=== PATIENT | male | born 1960 | race Two or more races ===

== ENCOUNTER 2020-11-22 11:31 | Inpatient (IN) | payer OTHER ==
[~2020-11-22] VITALS: Ht 165.1 cm; Wt 88.9 kg
[2020-11-22] MEDS ORDERED: PIPERACILLIN /TAZOBACTAM 3.375 G in IV D5W 50 ML IV ONE (12:00)
--- NOTE | 2020-11-22 12:08 | NUR ---
[id number], from [facility], 02 desaturation 80%, on vent and trach, last covid negative 11/17/20, On vent and trach, connected to the monitor and pulse ox. Will continue to monitor accordingly.
--- NOTE | 2020-11-22 12:09 | NUR ---
Covid swab collected and sent to lab
--- NOTE | 2020-11-22 12:09 | NUR ---
IV access initiated and blood drawned and sent to lab.
[2020-11-22 12:12] LABS: BASOPHILS # (AUTO) 0.1 /CMM (0.0-0.2); BASOPHILS % (AUTO) 0.6 % (0.0-2.0); EOSINOPHILS % (AUTO) 2.9 % (0.0-6.0); HEMATOCRIT 23 % (39-51); HEMOGLOBIN 7.2 g/dL (13.5-17.5); LYMPHOCYTES # (AUTO) 0.6 /CMM (0.8-4.8); MEAN CORPUSCULAR HGB CONC 32 g/dl (31.0-36.0); MEAN CORPUSCULAR VOLUME 105 fL (80-96); MONOCYTES # (AUTO) 1.2 /CMM (0.1-1.30); MONOCYTES % (AUTO) 7.6 % (2.0-12.0); NEUTROPHILS # (AUTO) 13.6 /CMM (1.8-8.9); NEUTROPHILS % (AUTO) 84.9 % (43.0-81.0); PLATELET COUNT (AUTO) 337 /CMM (150-450); RED BLOOD CELL COUNT(AUTO) 2.16 MIL/uL (4.5-6.0)
[2020-11-22 12:13] LABS: ABG BASE EXCESS 1.6 mmol/L; ABG OXYGEN SATURATION 94.9 % (92.0-98.5); ABG PCO2 69.1 mmHg (35.0-45.0); ABG PH 7.249 (7.350-7.450); ABG PO2 84.2 mmHg (75.0-100.0); AaDO2 377.1 mmHg; MetHb 0.1 % (0.0-1.5); O2Hb 93.9 % (94.0-97.0); SITE, ABG Right Radial; VENT MODE, BG ac15 500 +5 75%
[2020-11-22 12:14] LABS: CALCIUM, SERUM 8.5 mg/dL (8.5-10.1); CREATININE 3.7 mg/dL (0.6-1.3); POTASSIUM 4.2 mmol/L (3.5-5.1)
[2020-11-22 12:26] LABS: ALBUMIN 1.9 g/dL (3.4-5.0); BILIRUBIN,DIRECT 1.5 mg/dL (0.0-0.2); BILIRUBIN,TOTAL 1.9 mg/dL (0.2-1.0); TOTAL PROTEIN, SERUM 6.9 g/dL (6.4-8.2)
--- NOTE | 2020-11-22 12:33 | NUR ---
DR SALGADO AT BEDSIDE
[2020-11-22] MEDS ORDERED: MEROPENEM 1 G in IV NS 0.9% 100 ML IV ONE (13:00)
[2020-11-22] MEDS ORDERED: methylPREDNISolone SOD SUCC 125 MG/2ML VIAL IV SCH (13:00)
[2020-11-22] MEDS ORDERED: HEPARIN SODIUM, PORCINE 5000 UNITS/1 ML VIAL SQ SCH (13:00)
--- NOTE | 2020-11-22 13:12 | NUR ---
[facility] CALLED SAFETY PERSON PAGED CINDY ANDREWS.
[2020-11-22] MEDS ORDERED: LORA-259 GT (13:23)
[2020-11-22] MEDS ORDERED: SIME80TA15 GT (13:23)
[2020-11-22] MEDS ORDERED: NUTR100037 GT (13:23)
[2020-11-22] MEDS ORDERED: CALC500T13 GT (13:23)
[2020-11-22] MEDS ORDERED: DILT30TA14 GT (13:23)
[2020-11-22] MEDS ORDERED: LANS30CA56 GT (13:23)
[2020-11-22] MEDS ORDERED: ONDA4TAB5 GT (13:23)
[2020-11-22] MEDS ORDERED: HYDR-4384 GT (13:23)
[2020-11-22] MEDS ORDERED: ACET650S26 GT (13:23)
[2020-11-22] MEDS ORDERED: MIDO10TA GT (13:23)
[2020-11-22] MEDS ORDERED: IPRA12.9 IH (13:23)
[2020-11-22] MEDS ORDERED: ASPI-1169 GT (13:23)
[2020-11-22] MEDS ORDERED: BISA10SU11 RC (13:23)
[2020-11-22] MEDS ORDERED: FOLI0.8T2 GT (13:23)
[2020-11-22] MEDS ORDERED: CHOL100040 GT (13:23)
[2020-11-22] MEDS ORDERED: TAMS-12 GT (13:23)
[2020-11-22] MEDS ORDERED: SENN-261 GT (13:23)
[2020-11-22] MEDS ORDERED: ATOR10TA GT (13:23)
[2020-11-22] MEDS ORDERED: METO25TA20 GT (13:23)
[2020-11-22] MEDS ORDERED: EPOE4000 SQ (13:23)
[2020-11-22] MEDS ORDERED: SENNOSIDES 8.6 MG TABLET GT PRN (14:30)
[2020-11-22] MEDS ORDERED: MAGNESIUM HYDROXIDE 30 ML UDC PO PRN (14:30)
[2020-11-22] MEDS ORDERED: TEMAZEPAM 15 MG CAPSULE GT PRN (14:30)
[2020-11-22] MEDS ORDERED: MAG HYDROX/AL HYDROX/SIMETH 30 ML UDC PO PRN (14:30)
[2020-11-22] MEDS ORDERED: ACETAMINOPHEN 650 MG/20.3 ML UDC GT PRN (14:30)
[2020-11-22] MEDS ORDERED: SIMETHICONE 80 MG TAB.CHEW GT PRN (14:30)
[2020-11-22] MEDS ORDERED: HYDROCODONE/APAP 5/325MG TABLET GT PRN (14:30)
[2020-11-22] MEDS ORDERED: HOME MED MISCELLANEOUS XX SCH (14:30)
[2020-11-22] MEDS ORDERED: ACETAMINOPHEN 325 MG TABLET PO PRN (14:30)
[2020-11-22] MEDS ORDERED: Z GUARD REMEDY 2 OZ OINT TP PRN (14:30)
[2020-11-22] MEDS ORDERED: BISACODYL SUPP (10 MG) 10 MG/SUPP.RECT SUPP.RECT RC PRN (14:30)
[2020-11-22] MEDS ORDERED: EPOETIN ALFA (4000 UNIT) 4,000 UNIT/ML VIAL SQ PRN (14:30)
[2020-11-22] MEDS ORDERED: ONDANSETRON HCL/PF 4 MG/2 ML VIAL IVP PRN (14:30)
[2020-11-22] MEDS ORDERED: RENAL NOVASOURCE 1,000 ML BOTTLE GT SCH (14:30)
[2020-11-22] MEDS ORDERED: MIDODRINE HCL (5MG) 5 MG TABLET GT PRN (14:30)
[2020-11-22] MEDS: IPRATROPIUM BROMIDE 14 GM INHALER (or 12.9 GM) IH SCH ×2 (15:49→21:30)
[2020-11-22] MEDS ORDERED: VANCOMYCIN 500 MG in IV D5W 100 ML IV PRN (19:00)
[2020-11-22] MEDS ORDERED: VANCOMYCIN 1 GM in IV D5W 250 ML IV ONE (20:00)
[2020-11-22] MEDS ORDERED: CALCIUM CARBONATE 500 MG TAB.CHEW GT PRN (21:00)
[2020-11-22 21:37] LABS: IRON, SERUM 33 ug/dl (50-175); TOTAL IRON BINDING CAPACITY 130 ug/dl (250-450)
[2020-11-22] MEDS ORDERED: ATORVASTATIN 40 MG TABLET ONE ×2 (21:41→22:42)
[2020-11-22] MEDS ORDERED: HEPARIN SODIUM, PORCINE 5000 UNITS/1 ML VIAL ONE (21:41)
[2020-11-22] MEDS ORDERED: TAMSULOSIN 0.4 MG CAP.SR.24H ONE ×2 (21:42→22:39)
[2020-11-22] MEDS ORDERED: methylPREDNISolone SOD SUCC 125 MG/2ML VIAL ONE (21:42)
[2020-11-22] MEDS ORDERED: METOPROLOL TARTRATE 50 MG TABLET ONE (21:42)
[2020-11-22] MEDS ORDERED: DILTIAZEM HCL 30 MG TABLET ONE ×2 (21:42→22:39)
[2020-11-22] MEDS: HEPARIN SODIUM, PORCINE 5000 UNITS/1 ML VIAL SQ SCH (21:50)
[2020-11-22] MEDS: methylPREDNISolone SOD SUCC 40 MG/ML VIAL IV SCH (21:55)
[2020-11-22] MEDS: PIPERACILLIN /TAZOBACTAM 2.25 G in IV D5W 50 ML IV SCH (22:00)
--- NOTE | 2020-11-22 22:00 | NUR ---
ALL MEDS CRUSHED TOGETHER TO ADMIN VIA [employer]ANdisco. NOTED BP 106/61, WILL HOLD LOPRESSOR AND CARDIZEM AT THIS TIME. EMA MORA NP MADE AWARE
--- NOTE | 2020-11-22 22:27 | NUR ---
PER RT, UNABLE TO ADMINISTER ATROVENT VIA TRACH MDI
--- NOTE | 2020-11-22 22:41 | NUR ---
PER EMA MORA NP ADMIN CARDIZEM AND HOLD LOPRESSOR
[2020-11-22] MEDS: ATORVASTATIN 10 MG TABLET GT SCH (23:00)
[2020-11-22] MEDS: DILTIAZEM HCL 30 MG TABLET GT SCH (23:00)
[2020-11-22] MEDS: TAMSULOSIN 0.4 MG CAP.SR.24H GT SCH (23:00)
[2020-11-22] MEDS: METOPROLOL TARTRATE 25 MG TABLET GT SCH (23:07)
--- NOTE | 2020-11-22 23:38 | NUR ---
RT pt received on mechanical vent with current settings. lia castillo 8. vent plugged in to red outlet. trach secure. alarms on and audible. ambu bag at hob. spare trach at bed side. minimal thick secretions suctioned via trach. no sob, no resp distress. will continue to monitor.
--- NOTE | 2020-11-22 23:50 | NUR ---
CALL FROM LAB. RAPID COVID NEGATIVE.
--- NOTE | 2020-11-23 02:48 | NUR ---
PT REMAINS TACHYCARDIC. NO ACUTE DISTRESS NOTED AT THIS TIME, PT SLEEPING COMFORTABLY IN BED. STILL ON CONTINUOUS CHUTE GREASER AND PULSE OX. EMA MORA NP MADE AWARE. WILL CONTINUE TO MONITOR
--- NOTE | 2020-11-23 02:48 | NUR ---
Richard de los santos in ED - 11/23/20 at 0248 by RAJANI PT REMAINS TACHYCARDIC. EMA MORA NP MADE AWARE
[2020-11-23] MEDS: IPRATROPIUM BROMIDE 14 GM INHALER (or 12.9 GM) IH SCH ×3 (03:00→20:08)
[2020-11-23] MEDS: DILTIAZEM HCL 30 MG TABLET GT SCH (05:00)
--- NOTE | 2020-11-23 05:07 | NUR ---
PER RT, UNABLE TO ADMINISTER ATROVENT VIA TRACH MDI
[2020-11-23] MEDS: methylPREDNISolone SOD SUCC 40 MG/ML VIAL IV SCH ×3 (05:10→22:34)
[2020-11-23] MEDS: METOPROLOL TARTRATE 25 MG TABLET GT SCH ×3 (05:10→23:57)
--- NOTE | 2020-11-23 05:10 | NUR ---
BP: 107/65, HR: 130. PER EMA MORA, NURSING OFFICER WILL HOLD CARDIZEM AND ADMINISTER LOPRESSER VIA GTUBE
[2020-11-23] MEDS: PIPERACILLIN /TAZOBACTAM 2.25 G in IV D5W 50 ML IV SCH ×3 (05:12→23:43)
[2020-11-23] MEDS ORDERED: methylPREDNISolone SOD SUCC 125 MG/2ML VIAL ONE (05:13)
[2020-11-23] MEDS ORDERED: METOPROLOL TARTRATE 50 MG TABLET ONE ×2 (05:13→09:30)
[2020-11-23 05:58] LABS: ABG BASE EXCESS 0.9 mmol/L; ABG OXYGEN SATURATION 97.5 % (92.0-98.5); ABG PH 7.301 (7.350-7.450); ABG PO2 101.9 mmHg (75.0-100.0); AaDO2 371.2 mmHg; COHb 0.5 % (0.5-1.5); SITE, ABG Right Radial; VENT MODE, BG AC 15 550 75% +5
[2020-11-23 06:05] LABS: CHOLESTEROL 53 mg/dL (<200); LDL 29 mg/dL (0-99); TRIGLYCERIDES 86 mg/dL (30-150)
[2020-11-23 06:06] LABS: BASOPHILS % (AUTO) 0.1 % (0.0-2.0); CALCIUM, SERUM 8.3 mg/dL (8.5-10.1); CARBON DIOXIDE 30 mmol/L (21-32); CHLORIDE 96 mmol/L (98-107); GLUCOSE 223 mg/dL (74-106); HEMATOCRIT 22 % (39-51); LYMPHOCYTES # (AUTO) 0.9 /CMM (0.8-4.8); MAGNESIUM 2.4 mg/dL (1.8-2.4); MEAN CORPUSCULAR HGB CONC 31 g/dl (31.0-36.0); MEAN CORPUSCULAR VOLUME 104 fL (80-96); MONOCYTES # (AUTO) 0.8 /CMM (0.1-1.30); MONOCYTES % (AUTO) 4.3 % (2.0-12.0); NEUTROPHILS # (AUTO) 16.8 /CMM (1.8-8.9); NEUTROPHILS % (AUTO) 90.6 % (43.0-81.0); PHOSPHORUS 4.6 mg/dL (2.5-4.9); PLATELET COUNT (AUTO) 309 /CMM (150-450); POTASSIUM 4.4 mmol/L (3.5-5.1); RED BLOOD CELL COUNT(AUTO) 2.14 MIL/uL (4.5-6.0); SODIUM SERUM 133 mmol/L (136-145); UREA NITROGEN, BLOOD 69 mg/dL (7-18); WHITE BLOOD COUNT (AUTO) 18.6 K/uL (4.3-11.0)
[2020-11-23 06:07] LABS: HDL CHOLESTEROL < 10 mg/dL (40-60)
--- NOTE | 2020-11-23 06:42 | NUR ---
PT CLEANED, CHANGED, AND REPOSITIONED. STILL ON CONTINUOUS UNIVERSITY [employer]NS[employer]IP AND PULSE OX, WILL CONTINUE TO MONITOR
--- NOTE | 2020-11-23 07:29 | NUR ---
REPORT GIVEN TO DARRYN GONZALES FOR [facility]
[2020-11-23] MEDS ORDERED: HYDROCODONE/APAP 5/325MG TABLET ONE (08:07)
[2020-11-23] MEDS: PANTOPRAZOLE 40 MG/PACK PACK GT SCH (08:30)
[2020-11-23] MEDS ORDERED: HEPARIN SODIUM, PORCINE 5000 UNITS/1 ML VIAL ONE (09:30)
[2020-11-23] MEDS ORDERED: ASPIRIN 81 MG TAB.CHEW ONE (09:30)
[2020-11-23] MEDS ORDERED: DILTIAZEM HCL 30 MG TABLET ONE (09:30)
[2020-11-23] MEDS ORDERED: PANTOPRAZOLE 40 MG/PACK PACK ONE (09:30)
[2020-11-23 09:37] LABS: BAND % (MANUAL) 22 % (0.0-5.0); LYMPHOCYTES % (MANUAL) 6 % (16-48); MONOCYTES % (MANUAL) 8 % (0-11.0); NEUTROPHILS % (MANUAL) 64 (42-76)
[2020-11-23] MEDS: VIT B CMPLX 3/FA/VIT C/BIOTIN 1 TAB TABLET GT SCH (09:53)
[2020-11-23] MEDS: CHOLECALCIFEROL 1,000 UNIT TABLET (VIT D3) GT SCH (09:53)
[2020-11-23] MEDS: ASPIRIN 81 MG TAB.CHEW GT SCH (09:53)
[2020-11-23] MEDS: HEPARIN SODIUM, PORCINE 5000 UNITS/1 ML VIAL SQ SCH ×2 (09:54→21:00)
--- NOTE | 2020-11-23 10:12 | NUR ---
called dietitician for consult for feeding
--- NOTE | 2020-11-23 10:31 | NUR ---
WOUND CARE CONSULT: PT PRESENTS WITH GENERALIZED EDEMA, SACRAL INTACT DEEP TISSUE INJURY WITH SCARRING, LEFT FOOT WOUND AND RT HEEL WOUND, ALL PRESENT ON ADMISSION. RECOMMEND DPM CONSULT. DR RHODES NOTIFIED OF CONSULT REQUEST. RECOMMENDATIONS MADE FOR SKIN PROTECTION. DISCUSSED WITH NURSING STAFF. FOAM DRESSINGS ARE IN PLACE TO LEFT FOOT AND RT HEEL. HEELS FLOATED. MD IN AGREEMENT WITH PLAN OF CARE. Addendum: 11/23/20 at 1032 by ALISHA CARTER WNDNU Amended: Links added.
[2020-11-23] MEDS ORDERED: methylPREDNISolone SOD SUCC 40 MG/ML VIAL ONE (12:55)
[2020-11-23] MEDS ORDERED: NEPRO 1,000 ML BOTTLE GT SCH (13:00)
--- NOTE | 2020-11-23 15:19 | NUR ---
received bed assignment 319
[2020-11-23 15:40] VITALS: BP 106/77
--- NOTE | 2020-11-23 15:40 | NUR ---
tele civil designer: notes received pt from e[facility] via [facility] accompanied by 1 rn, 1 tech, and 1 resp. therapist. pt currently on fio2 at 55% and titrated down to 50% prior to transferring pt from [facility] to bed at this time. kept comfortable. vent settings: ac 24, tv 550, peep 5 and fio2 50%, satting at 97%. hob elevated. ordered g-tube pump to central, spoke to viraj. place pt on tele junctional tachycardia 130. for dpm consult with dr. tse due to left foot wound and right heel wound. keith boots on at this time. oriented to room and surroundings. pt for hd tx today, awaiting for hd nurse, pt aware. will continue to monitor.
--- NOTE | 2020-11-23 15:56 | NUR ---
bedside report given to alfred at [facility].
--- NOTE | 2020-11-23 17:30 | NUR ---
tele rn field: nephro consult seen by dr. baez and pt for hd tonight. sveta (hd nurse) aware.
--- NOTE | 2020-11-23 18:20 | NUR ---
tele credit report checker: dpm consult seen by dr. villar with treatment orders. orders acknowledged.
[2020-11-23] MEDS: NEPRO 1,000 ML BOTTLE GT PRN (18:53)
--- NOTE | 2020-11-23 19:05 | NUR ---
tele nuclear plant construction worker: notes report given to hari (maverick) for continuity of care.
--- NOTE | 2020-11-23 19:45 | NUR ---
EXPLORATION DRILLER OPENING NOTES RECEIVED PATIENT IN BED ALERT AND ORIENTED X 3. CAN MOUTH WORDS AND ABLE TO FOLLOW DIRECTIONS. BREATHING REGULAR AND UNLABORED ON OXYGEN AT 55% VIA MECHANICAL VENT, LATEST SPO2 99%. LEFT HAND G20 IV LINE INTACT AND PATENT, FLUSHING WELL WITH NO S/S OF INFILTRATION NOTED. RIGHT CHEST WALL PERMACATH INTACT WITH NO ACTIVE BLEEDING SEEN, DRESSING CLEAN AND DRY. GTUBE PATENT WITH NO RESIDUAL ASPIRATED. ON CARDIAC MONITORING WITH SINUS TACHYCARDIA AT 130bpm. DENIES PAIN/DISCOMFORT AT THIS TIME. BED LOW AND LOCKED ON SEMI FOWLERS POSITION. CALL LIGHT IN REACH. WILL CONTINUE TO MONITOR.
[2020-11-23 20:00] VITALS: BP 110/66
[2020-11-23] MEDS ORDERED: VANCOMYCIN 1 GM in IV D5W 250ml IV ONE (20:00)
[2020-11-23 21:34] VITALS: BP 110/66
[2020-11-23] MEDS: ATORVASTATIN 10 MG TABLET GT SCH (22:34)
[2020-11-23] MEDS: TAMSULOSIN 0.4 MG CAP.SR.24H GT SCH (22:34)
--- NOTE | 2020-11-23 23:00 | NUR ---
DEMAND PLANNING MANAGER NOTES S/P HEMODIALYSIS 1.5L OUTPUT.
[2020-11-24 01:31] VITALS: BP 119/72
[2020-11-24] MEDS: IPRATROPIUM BROMIDE 14 GM INHALER (or 12.9 GM) IH SCH ×4 (02:32→20:48)
[2020-11-24] MEDS ORDERED: PIPERACILLIN /TAZOBACTAM 2.25 G VIAL IV ONE (05:04)
[2020-11-24] MEDS: methylPREDNISolone SOD SUCC 40 MG/ML VIAL IV SCH ×3 (05:12→22:27)
[2020-11-24] MEDS: METOPROLOL TARTRATE 25 MG TABLET GT SCH ×3 (05:12→22:00)
[2020-11-24] MEDS: PIPERACILLIN /TAZOBACTAM 2.25 G in IV D5W 50 ML IV SCH ×2 (05:12→13:13)
[2020-11-24 05:14] VITALS: BP 113/80
[2020-11-24] MEDS ORDERED: VANCOMYCIN 500 MG in IV D5W 100 ML IV PRN (06:00)
[2020-11-24] MEDS: PANTOPRAZOLE 40 MG/PACK PACK GT SCH (06:33)
[2020-11-24 06:53] LABS: BASOPHILS % (AUTO) 0.1 % (0.0-2.0); HEMATOCRIT 24 % (39-51); HEMOGLOBIN 7.9 g/dL (13.5-17.5); LYMPHOCYTES # (AUTO) 0.7 /CMM (0.8-4.8); LYMPHOCYTES % (AUTO) 4.3 % (20.0-44.0); MEAN CORPUSCULAR HGB CONC 33 g/dl (31.0-36.0); MEAN CORPUSCULAR VOLUME 103 fL (80-96); MONOCYTES # (AUTO) 0.9 /CMM (0.1-1.30); MONOCYTES % (AUTO) 5.5 % (2.0-12.0); NEUTROPHILS # (AUTO) 15.2 /CMM (1.8-8.9); NEUTROPHILS % (AUTO) 90.1 % (43.0-81.0); PLATELET COUNT (AUTO) 319 /CMM (150-450); RED BLOOD CELL COUNT(AUTO) 2.33 MIL/uL (4.5-6.0); WHITE BLOOD COUNT (AUTO) 16.9 K/uL (4.3-11.0)
--- NOTE | 2020-11-24 06:55 | NUR ---
CERTIFIED PROFESSIONAL ERGONOMIST CLOSING NOTES PATIENT IN BED, ALERT AND ORIENTED X 2-3. AFEBRILE WITH NO S/S OF DISTRESS OBSERVED. WILL ENDORSE TO MORNING SHIFT FOR CONTINUITY OF CARE.
[2020-11-24 07:09] LABS: CALCIUM, SERUM 8.3 mg/dL (8.5-10.1); CREATININE 3.6 mg/dL (0.6-1.3); POTASSIUM 4.3 mmol/L (3.5-5.1)
[2020-11-24 08:00] VITALS: BP 113/51
[2020-11-24] MEDS: HEPARIN SODIUM, PORCINE 5000 UNITS/1 ML VIAL SQ SCH ×3 (09:00→21:00)
--- NOTE | 2020-11-24 09:00 | NUR ---
MS/RN OPENING NOTES RECEIVED PT IN BED. A/O X3. AFEBRILE. DENIES ANY PAIN. ABLE TO MOUTH WORDS. L HAND #20 SL, INTACT. R CHEST PERMACATH. VENT SETTING AC 24 FiO2 50 % TV 550 PEEP 5.0. ON TELE READING SINUS TACHY. GT TUBE NEPRO RUNNING @ 45 ML/HR. WITH INTERPENUMATIC CD. SAFETY PRECAUTIONS APPLIED. BED IN LOWEST POSITION, LOCKED. SIDE RAILS UP X2. CALL LIGHT WITHIN REACH. WILL CONTINUE TO MONITOR.
[2020-11-24] MEDS: VIT B CMPLX 3/FA/VIT C/BIOTIN 1 TAB TABLET GT SCH (09:53)
[2020-11-24] MEDS: ASPIRIN 81 MG TAB.CHEW GT SCH (09:53)
[2020-11-24] MEDS: CHOLECALCIFEROL 1,000 UNIT TABLET (VIT D3) GT SCH (09:53)
[2020-11-24] MEDS: AMMONIUM LACTATE 227 GM BOTTLE TP SCH ×2 (10:17→17:38)
[2020-11-24] MEDS: DAKINS QUARTER STRENGTH (0.125%) 480 ML BOTTLE TOP SCH (10:18)
[2020-11-24 12:00] VITALS: BP 126/80
[2020-11-24] MEDS: CLOTRIMAZOLE 1% 15 GM TUBE TP SCH (17:37)
--- NOTE | 2020-11-24 17:57 | NUR ---
*TELE/RN CLOSING NOTE PATIENT IN BED. A/O X3. AFEBRILE. DENIES ANY PAIN. IN NO APPARENT DISTRESS. R HAND # 20G SL. RIGHT PERMA CATH. VENT SETTING OF AC 24 TV 550 FiO2 PEEP 5. ON TELE, JUNCTIONAL TACHY/ A FLUTTER. NEPRO, RUNNING AT 45 ML/HR. WITH G TUBE. CHANGED DRESSING AND APPLIED MEPILEX AND KERLIX ON THE RIGHT POSTERIOR HEEL. L PLANTAR AND SACRAL AREA CLEANED WELL. SAFETY PRECAUTIONS APPLIED . BED IN LOWEST POSITION, LOCKED. SIDE RAILS UP X2. CALL LIGHT WITHIN REACH. WILL ENDORSE TO GREENSTONE POLISHER OPERATOR [facility].
--- NOTE | 2020-11-24 19:40 | NUR ---
RN OPENING NOTES PATIENT RECEIVED RESTING IN BED A/O X 3. TOLERATING VENT SETTINGS WELL WITH BREATHING EVEN AND UNLABORED, NO SOB NOTED. NO SIGNS OF ACUTE DISTRESS. NO SIGNS OF PAIN OR DISCOMFORT AT THE MOMENT. GTUBE FEEDING RUNNING NEPRO @ 45ML/HR. L HAND #20 SL AND RCHEST PERMCATH NOTED AND IN PLACE. SAFETY PRECAUTIONS IN PLACE WITH BED IN LOWEST POSITION, CALL LIGHT WITHIN REACH, BREAKS ON, SIDE RAILS UP. ALL NEEDS ATTENDED TO. PATIENT KEPT CLEAN AND DRY. WOUND CARE DONE. WILL ENDORSE TO ONCOMING SHIFT ABOUT [facility].
--- NOTE | 2020-11-24 20:00 | NUR ---
PRODUCTION CLERK AT BEDSIDE. NO SIGNS OF ACUTE DISTRESS.
[2020-11-24] MEDS ORDERED: GENTAMICIN 160 MG in IV D5W 100 ML IV ONE (21:00)
--- NOTE | 2020-11-24 22:05 | NUR ---
DIALYSIS FINISHED, 1L OUT. POST VITALS 94/ 72, HR 141 T 98.6, RR 16
[2020-11-24] MEDS: ATORVASTATIN 10 MG TABLET GT SCH (22:26)
[2020-11-24] MEDS: TAMSULOSIN 0.4 MG CAP.SR.24H GT SCH (22:26)
[2020-11-25 01:51] VITALS: BP 128/66
[2020-11-25] MEDS: IPRATROPIUM BROMIDE 14 GM INHALER (or 12.9 GM) IH SCH ×4 (03:00→21:00)
[2020-11-25] MEDS: METOPROLOL TARTRATE 25 MG TABLET GT SCH ×3 (04:51→21:32)
[2020-11-25] MEDS: methylPREDNISolone SOD SUCC 40 MG/ML VIAL IV SCH ×3 (04:52→21:32)
[2020-11-25] MEDS: NEPRO 1,000 ML BOTTLE GT PRN (06:20)
--- NOTE | 2020-11-25 06:57 | NUR ---
RN CLOSING NOTES PATIENT RESTING IN BED A/O X 3. TOLERATING VENT SETTINGS WELL WITH BREATHING EVEN AND UNLABORED, NO SOB NOTED. NO SIGNS OF ACUTE DISTRESS. NO SIGNS OF PAIN OR DISCOMFORT AT THE MOMENT. GTUBE FEEDING RUNNING NEPRO @ 45ML/HR. L HAND #20 SL AND RCHEST PERMCATH NOTED AND IN PLACE. SAFETY PRECAUTIONS IN PLACE WITH BED IN LOWEST POSITION, CALL LIGHT WITHIN REACH, BREAKS ON, SIDE RAILS UP. ALL NEEDS ATTENDED TO. PATIENT KEPT CLEAN AND DRY. WOUND CARE DONE. WILL ENDORSE TO ONCOMING SHIFT ABOUT [facility].
[2020-11-25] MEDS ORDERED: GENTAMICIN 80 MG in IV D5W 50 ML IV PRN (07:00)
--- NOTE | 2020-11-25 07:30 | NUR ---
TELE/RN OPENING NOTES RECEIVED PATIENT IN BED. A/O X3. AFEBRILE. IN NO APPARENT DISTRESS. VENT SETTINGS AC 24 TV 500 FiO2 50% PEEP 5. R CHEST PERMA CATH. L HAND #20 G SL. SAFETY PRECAUTIONS APPLIED. BED IN LOWEST POSITION, LOCKED. SIDE RAILS UP X3. CALL LIGHT WITHIN REACH. WILL CONTINUE TO MONITOR.
[2020-11-25 07:48] LABS: CALCIUM, SERUM 8.9 mg/dL (8.5-10.1); POTASSIUM 4.5 mmol/L (3.5-5.1)
[2020-11-25 08:00] VITALS: BP 122/78
[2020-11-25] MEDS: VIT B CMPLX 3/FA/VIT C/BIOTIN 1 TAB TABLET GT SCH (08:20)
[2020-11-25] MEDS: PANTOPRAZOLE 40 MG/PACK PACK GT SCH (08:21)
[2020-11-25] MEDS: CHOLECALCIFEROL 1,000 UNIT TABLET (VIT D3) GT SCH (08:21)
[2020-11-25] MEDS: ASPIRIN 81 MG TAB.CHEW GT SCH (08:21)
[2020-11-25] MEDS: HEPARIN SODIUM, PORCINE 5000 UNITS/1 ML VIAL SQ SCH ×2 (08:22→21:33)
[2020-11-25] MEDS: AMMONIUM LACTATE 227 GM BOTTLE TP SCH ×2 (08:24→16:21)
[2020-11-25] MEDS: DAKINS QUARTER STRENGTH (0.125%) 480 ML BOTTLE TOP SCH (08:24)
[2020-11-25] MEDS: CLOTRIMAZOLE 1% 15 GM TUBE TP SCH ×2 (08:25→16:21)
[2020-11-25 08:28] LABS: GENTAMICIN,RANDOM 3.2 ug/ml (4.0-8.0)
[2020-11-25 11:17] VITALS: BP 131/76
--- NOTE | 2020-11-25 15:45 | NUR ---
TELE/RN NOTES STARTED HEMODIALYSIS
[2020-11-25 16:00] VITALS: BP 96/55
--- NOTE | 2020-11-25 18:00 | NUR ---
TELE/RN NOTES HD OUTPUT 2700. POST V/S 84/45, 103, 98.1
--- NOTE | 2020-11-25 19:13 | NUR ---
*TELE/RN CLOSING NOTE PATIENT IN BED. A/O X3. AFEBRILE. IN NO APPARENT DISTRESS. R HAND # 20G SL. RIGHT PERMA CATH. VENT SETTING OF AC 24 TV 550 FiO2 PEEP 5. ON TELE, NEPRO, RUNNING AT 45 ML/HR. HD OUTPUT 2700. WITH G TUBE. CHANGED DRESSING AND APPLIED MEPILEX AND KERLIX ON THE RIGHT POSTERIOR HEEL. L PLANTAR AND SACRAL AREA CLEANED WELL. SAFETY PRECAUTIONS APPLIED . BED IN LOWEST POSITION, LOCKED. SIDE RAILS UP X2. CALL LIGHT WITHIN REACH. WILL ENDORSE TO MEDICAL SALES.
--- NOTE | 2020-11-25 19:30 | NUR ---
GAUGE CONTROLLER NOTES PATIENT IN BED, AWAKE, ALERT AND ORIENTED X 2-3. BREATHING EVEN AND UNLABORED ON MV. SHOWS NO SIGNS OF ACUTE RESPIRATORY DISTRESS, NO ACUTE PAIN. TELE MONITOR A FLUTTER 120'S. GTUBE RUNNING NEPHRO 45ML/HR. NO RESIDUALS. IV ON L HAND 20G SL. SHOWS NO SIGNS OF INFILTRATION, NO REDNESS. R CHEST PERMACATH INTACT AND DRESSING IN PLACE. SAFETY PRECAUTIONS IN PLACE. BED IN LOWEST POSITION, LOCKED, AND CALL LIGHT KEPT WITHIN REACH.
[2020-11-25 20:00] VITALS: BP 118/75
[2020-11-25 20:30] VITALS: BP 118/75
[2020-11-25] MEDS: TAMSULOSIN 0.4 MG CAP.SR.24H GT SCH (21:32)
[2020-11-25] MEDS: ATORVASTATIN 10 MG TABLET GT SCH (21:32)
[2020-11-26 00:38] VITALS: BP 109/72
[2020-11-26] MEDS: IPRATROPIUM BROMIDE 14 GM INHALER (or 12.9 GM) IH SCH ×4 (03:00→21:00)
[2020-11-26] MEDS: NEPRO 1,000 ML BOTTLE GT PRN (04:30)
[2020-11-26] MEDS: METOPROLOL TARTRATE 25 MG TABLET GT SCH ×3 (04:31→21:21)
[2020-11-26] MEDS: methylPREDNISolone SOD SUCC 40 MG/ML VIAL IV SCH ×3 (04:31→21:21)
[2020-11-26 05:49] LABS: ABG BASE EXCESS -1.9 mmol/L; ABG OXYGEN SATURATION 90.4 % (92.0-98.5); ABG PCO2 30.7 mmHg (35.0-45.0); ABG PH 7.462 (7.350-7.450); ABG PO2 64.3 mmHg (75.0-100.0); AaDO2 257.7 mmHg; COHb 0.6 % (0.5-1.5); SITE, ABG Left Radial; VENT MODE, BG AC24 VT550 50% +5
[2020-11-26 06:36] LABS: BASOPHILS % (AUTO) 0.1 % (0.0-2.0); HEMATOCRIT 26 % (39-51); HEMOGLOBIN 7.9 g/dL (13.5-17.5); LYMPHOCYTES # (AUTO) 0.6 /CMM (0.8-4.8); LYMPHOCYTES % (AUTO) 5.1 % (20.0-44.0); MEAN CORPUSCULAR HGB CONC 30 g/dl (31.0-36.0); MEAN CORPUSCULAR VOLUME 109 fL (80-96); MONOCYTES # (AUTO) 0.5 /CMM (0.1-1.30); MONOCYTES % (AUTO) 4.4 % (2.0-12.0); NEUTROPHILS # (AUTO) 10.8 /CMM (1.8-8.9); NEUTROPHILS % (AUTO) 90.4 % (43.0-81.0); PLATELET COUNT (AUTO) 292 /CMM (150-450); RED BLOOD CELL COUNT(AUTO) 2.37 MIL/uL (4.5-6.0); WHITE BLOOD COUNT (AUTO) 11.9 K/uL (4.3-11.0)
[2020-11-26 07:01] LABS: CALCIUM, SERUM 8.5 mg/dL (8.5-10.1); CREATININE 2.7 mg/dL (0.6-1.3); POTASSIUM 4.9 mmol/L (3.5-5.1)
--- NOTE | 2020-11-26 07:59 | NUR ---
REAL ESTATE SUBAGENT NOTES ENDORSED TO AM NURSE. PT IN BED, RESTING COMFORTABLE. NO ACUTE EVENTS OVERNIGHT.
[2020-11-26 08:40] VITALS: BP 124/75
[2020-11-26] MEDS: ASPIRIN 81 MG TAB.CHEW GT SCH (09:10)
[2020-11-26] MEDS: PANTOPRAZOLE 40 MG/PACK PACK GT SCH (09:10)
[2020-11-26] MEDS: VIT B CMPLX 3/FA/VIT C/BIOTIN 1 TAB TABLET GT SCH (09:10)
[2020-11-26] MEDS: CHOLECALCIFEROL 1,000 UNIT TABLET (VIT D3) GT SCH (09:10)
[2020-11-26] MEDS: HEPARIN SODIUM, PORCINE 5000 UNITS/1 ML VIAL SQ SCH ×2 (09:11→21:23)
[2020-11-26] MEDS: AMMONIUM LACTATE 227 GM BOTTLE TP SCH ×2 (09:21→17:10)
[2020-11-26] MEDS: DAKINS QUARTER STRENGTH (0.125%) 480 ML BOTTLE TOP SCH (09:21)
[2020-11-26] MEDS: CLOTRIMAZOLE 1% 15 GM TUBE TP SCH ×2 (09:22→17:11)
[2020-11-26] MEDS: INSULIN REGULAR, HUMAN 100 UNIT/ML 3 ML VIAL SQ PRN ×4 (10:21→23:08)
[2020-11-26] MEDS ORDERED: DEXTROSE 50%-WATER 50 ML DISP.SYRIN IV PRN (10:30)
[2020-11-26 12:00] VITALS: BP 133/81
--- NOTE | 2020-11-26 13:45 | NUR ---
RN NOTE Endorsed from Graciela CATES for [facility].
--- NOTE | 2020-11-26 14:24 | NUR ---
RN NOTE BS 437 -- insulin coverage 10u per protocol. Will reassess.
[2020-11-26] MEDS: DIGOXIN INJ 0.5 MG/2 ML AMPUL IV SCH ×3 (14:30→23:04)
[2020-11-26] MEDS: BLOOD SUGAR DIAGNOSTIC 1 EACH STRIP IN SCH ×3 (14:37→23:06)
[2020-11-26] MEDS: PROSOURCE / PROSTAT (PYXIS) 30 ML UDC GT SCH ×2 (14:37→17:10)
[2020-11-26 15:27] LABS: GENTAMICIN,RANDOM 1.9 ug/ml (4.0-8.0)
[2020-11-26 16:00] VITALS: BP 154/89
--- NOTE | 2020-11-26 16:18 | NUR ---
RN NOTE BS 494. Notified Maximus PLATE SETTER. Awaiting response.
[2020-11-26] MEDS: LORAZEPAM 1 MG TABLET GT PRN (17:10)
--- NOTE | 2020-11-26 17:38 | NUR ---
RN NOTE Received T.O. from Maximus USED CAR MANAGER to change to moderate sliding scale. BS 441--15 units given per protocol.
--- NOTE | 2020-11-26 18:44 | NUR ---
RN CLOSING NOTE Patient is resting in bed, A/ox2, on mechanical vent trach shiley #8, AC 24, TV500, FiO2 50%, PEEP 5. Tele monitor a-flutter 150s. Patient is incontinent, 1 large BM today. G-tube is clean and intact flushed, 0ml residual, running nepro @45mls/hr. LFA#22g is clean and intact flushing well. Right chest perma-cath noted. Last HD was 11/25. No need for HD today per Vasquez Price PERSONAL BANKING OFFICER. All patient needs met, all due medications given, patient kept clean and dry throughout shift. Patient turned and repositioned, skin protection measures implemented. Will endorse to evening or night nurse supervisor for [facility].
--- NOTE | 2020-11-26 19:05 | NUR ---
home hospice rn open notes received patient in bed hob elevated for aspiration precautions, gtube intact no residuals, awake alert and and oriented x2, welsh speaking able to point to needs, on mechanical vent , tolerating well, ambu bag at bedside, alarms audible plugged into red emergency plug, iv site to left fa #22 g sl , intact and patent no redness, no infiltration , right chest wall hd cath in place, safety precautions maintained, low bed and locked continuous pulse ox in place, noted hr 152 asymptomatic, will continue to monitor.
[2020-11-26 20:00] VITALS: BP 139/86
[2020-11-26] MEDS: TAMSULOSIN 0.4 MG CAP.SR.24H GT SCH (21:23)
--- NOTE | 2020-11-26 21:45 | NUR ---
video journalist notes albuterol medication not available.
[2020-11-27] VITALS: BP 119/71
[2020-11-27] MEDS: LORAZEPAM 1 MG TABLET GT PRN (01:41)
--- NOTE | 2020-11-27 01:44 | NUR ---
research rn spec notes ativan prn given noted patient restless . will continue to monitor.
[2020-11-27] MEDS: IPRATROPIUM BROMIDE 14 GM INHALER (or 12.9 GM) IH SCH ×4 (03:00→21:32)
--- NOTE | 2020-11-27 03:24 | NUR ---
claim attorney notes albuterol medication not available.
[2020-11-27 04:00] VITALS: BP 130/89
[2020-11-27] MEDS: NEPRO 1,000 ML BOTTLE GT PRN ×2 (04:27→18:20)
[2020-11-27] MEDS: METOPROLOL TARTRATE 25 MG TABLET GT SCH ×5 (04:30→23:32)
[2020-11-27] MEDS: BLOOD SUGAR DIAGNOSTIC 1 EACH STRIP IN SCH ×3 (05:23→18:02)
[2020-11-27] MEDS: INSULIN REGULAR, HUMAN 100 UNIT/ML 3 ML VIAL SQ PRN ×4 (05:26→23:37)
--- NOTE | 2020-11-27 05:37 | NUR ---
hospitalist made aware of accucheck 436 and 15 units given as per sliding scale, no new orders at this time.
--- NOTE | 2020-11-27 07:00 | NUR ---
sales management intern notes hospitalist placed stat bmp order and suggested pt may need an insulin drip will endorse to oncoming nurse.
--- NOTE | 2020-11-27 07:00 | NUR ---
furniture finisher apprentice closing notes patient in bed hob elevated for aspiration precautions, gtube intact no residuals, awake alert and and oriented x2, bangladeshi speaking able to point to needs, on mechanical vent , tolerating well, ambu bag at bedside, alarms audible plugged into red emergency plug, iv site to left fa #22 g sl , intact and patent no redness, no infiltration , right chest wall hd cath in place, safety precautions maintained, low bed and locked continuous pulse ox in place, noted hr remained in the 150's asymptomatic, will continue to monitor and endorse to next shift heels and sacral offloaded.remains comfortable throughout the shift.
[2020-11-27 07:17] LABS: CALCIUM, SERUM 7.9 mg/dL (8.5-10.1); CREATININE 3.3 mg/dL (0.6-1.3); POTASSIUM 4.5 mmol/L (3.5-5.1)
--- NOTE | 2020-11-27 07:30 | NUR ---
assayer opening notes Patient is in bed resting, awake, non verbal but mouths words. alert and oriented x1. breathing even and unlabored, on ventilator, current setting tolerated by patient w/o respiratory distress. on tele monitoring, reading of st, hr in the upper 140's to 150's, md/cardio aware. iv line on lfa #22, intact and patent. right chest wall hd cath intact, dressing c/d/i. safety precautions in place: bed locked and on lowest position, sr up x2, call light w/in reach. will continue to monitor.
[2020-11-27] MEDS: PANTOPRAZOLE 40 MG/PACK PACK GT SCH (07:53)
[2020-11-27 08:00] VITALS: BP 126/94
[2020-11-27] MEDS ORDERED: DEXTROSE 50%-WATER 50 ML DISP.SYRIN IV PRN (09:00)
[2020-11-27] MEDS: HEPARIN SODIUM, PORCINE 5000 UNITS/1 ML VIAL SQ SCH ×2 (09:00→20:08)
[2020-11-27] MEDS: VIT B CMPLX 3/FA/VIT C/BIOTIN 1 TAB TABLET GT SCH (09:39)
[2020-11-27] MEDS: ASPIRIN 81 MG TAB.CHEW GT SCH (09:39)
[2020-11-27] MEDS: CHOLECALCIFEROL 1,000 UNIT TABLET (VIT D3) GT SCH (09:39)
[2020-11-27] MEDS: methylPREDNISolone SOD SUCC 40 MG/ML VIAL IV SCH ×2 (09:39→20:03)
[2020-11-27] MEDS: DAKINS QUARTER STRENGTH (0.125%) 480 ML BOTTLE TOP SCH (09:40)
[2020-11-27] MEDS: CLOTRIMAZOLE 1% 15 GM TUBE TP SCH ×2 (09:40→16:38)
[2020-11-27] MEDS: AMMONIUM LACTATE 227 GM BOTTLE TP SCH ×2 (09:40→16:38)
[2020-11-27] MEDS: PROSOURCE / PROSTAT (PYXIS) 30 ML UDC GT SCH ×2 (09:41→16:38)
[2020-11-27 12:00] VITALS: BP 151/76
[2020-11-27] MEDS: DIGOXIN INJ 0.5 MG/2 ML AMPUL IV SCH ×3 (12:08→23:32)
[2020-11-27 16:00] VITALS: BP 134/92
[2020-11-27] MEDS ORDERED: VANCOMYCIN 1 GM in IV D5W 250 ML IV ONE (17:00)
--- NOTE | 2020-11-27 17:58 | NUR ---
RN NOTES PATIENT W/ STANDING ORDER OF VANCO AND GENTAMICIN IV TO BE GIVEN POST DIALYSIS. SPOKE W/ RONNIE FROM PHARMACY AND INFORMED THAT PATIENT WILL HAVE DIALYSIS TODAY BUT LATE IN THE AFTERNOON. PER RONNIE, OKAY TO GIVE VANCOMYCIN AND GENTAMICIN IV LATER TONIGHT AFTER DIALYSIS.
--- NOTE | 2020-11-27 19:00 | NUR ---
dehydrogenation converter helper closing notes Patient is in bed, awake, French-speaker, non verbal but mouths words. alert and oriented x1. breathing even and unlabored; ventilator setting tolerated by patient, no sob nor respiratory distress. on tele monitoring, reading of st, hr in the upper 110's to 120's, hr decreased from 150; cardiac meds administered as ordered. iv line on lfa #22, intact and patent. right chest wall hd cath intact, dressing c/d/i; for scheduled hd tonight as per Marjan terminal worker. safety precautions maintained: bed locked and on lowest position, sr up x2, call light w/in reach. will endorse to motor route carrier rn for mil.
--- NOTE | 2020-11-27 19:15 | NUR ---
WIRE WINDING MACHINE OPERATOR OPENING NOTE Patient awake in bed, A/O x1-2, american speaking only. Tele monitor reading atrial flutter 120's-150's. Breathing even, clear, unlabored. Mechanical ventilation: shiley 8 FiO2 50% AC24 TV500 PEEP5, O2sat 100%. No acute distress or SOB noted. Skin is warm, pink, dry, appropriate for ethnicity. DTI noted on sacrum. Skin is dry and flaky. Patient is incontinent. IV site LFA 22g saline locked, patent and intact. No signs of redness or infiltration. RCW perma cath noted, no redness. HOB elevated. GTF feeding nepro 45 ml/hr, no residual. Patient tolerating well. Bed in low position, wheels locked, side rails up x2, call light within reach.
[2020-11-27 20:00] VITALS: BP 157/87
[2020-11-27] MEDS: TAMSULOSIN 0.4 MG CAP.SR.24H GT SCH (21:01)
--- NOTE | 2020-11-27 23:00 | NUR ---
BULKING MACHINE OPERATOR NOTE Patient dialyzed. 1000 ml output. Patient tolerated well. No adverse events. VSS. Will continue to monitor.
[2020-11-28] VITALS (7 sets, daily range): BP systolic 126–155; BP diastolic 81–97
[2020-11-28] MEDS: BLOOD SUGAR DIAGNOSTIC 1 EACH STRIP IN SCH ×5 (00:06→23:10)
[2020-11-28] MEDS: IPRATROPIUM BROMIDE 14 GM INHALER (or 12.9 GM) IH SCH ×3 (02:41→14:07)
[2020-11-28] MEDS: INSULIN REGULAR, HUMAN 100 UNIT/ML 3 ML VIAL SQ PRN ×4 (05:10→23:12)
[2020-11-28] MEDS: METOPROLOL TARTRATE 25 MG TABLET GT SCH ×4 (05:18→23:39)
--- NOTE | 2020-11-28 06:06 | NUR ---
TOURIST GUIDE CLOSING NOTE Patient asleep in bed, A/O x1-2. Tele monitor reading atrial flutter 110's. Breathing even, clear, unlabored. Mechanical ventilation: shiley 8 FiO2 50% AC24 TV500 PEEP5, O2sat 100%. No acute distress or SOB noted. DTI noted on sacrum, wound dressing changed. IV site LFA 22g saline locked, patent and intact. No signs of redness or infiltration. RCW perma cath noted, no redness. HOB elevated. GTF feeding nepro 45 ml/hr. Patient tolerating well. All needs met. Bed in low position, wheels locked, side rails up x2, call light within reach. Will endorse to oncoming nurse.
[2020-11-28] MEDS: PANTOPRAZOLE 40 MG/PACK PACK GT SCH (06:37)
--- NOTE | 2020-11-28 07:54 | NUR ---
RN OPENING NOTES RECEIVED PATIENT ON BED, AWAKE ALERT AND ORIENTED X 1-2. NO SIGN AND SYMPTOM OF PAIN AT THIS TIME. PATIENT IN NO APPARENT RESPIRATORY DISTRESS NOTED. WILL CONTINUE TO MONITOR.
[2020-11-28] MEDS: CHOLECALCIFEROL 1,000 UNIT TABLET (VIT D3) GT SCH (08:32)
[2020-11-28] MEDS: ASPIRIN 81 MG TAB.CHEW GT SCH (08:32)
[2020-11-28] MEDS: VIT B CMPLX 3/FA/VIT C/BIOTIN 1 TAB TABLET GT SCH (08:32)
[2020-11-28] MEDS: PROSOURCE / PROSTAT (PYXIS) 30 ML UDC GT SCH ×2 (08:34→18:34)
[2020-11-28] MEDS: DAKINS QUARTER STRENGTH (0.125%) 480 ML BOTTLE TOP SCH (08:35)
[2020-11-28] MEDS: AMMONIUM LACTATE 227 GM BOTTLE TP SCH ×2 (08:36→18:37)
[2020-11-28] MEDS: CLOTRIMAZOLE 1% 15 GM TUBE TP SCH ×2 (08:36→18:36)
[2020-11-28] MEDS: methylPREDNISolone SOD SUCC 40 MG/ML VIAL IV SCH (08:55)
[2020-11-28] MEDS: HEPARIN SODIUM, PORCINE 5000 UNITS/1 ML VIAL SQ SCH ×2 (09:00→20:41)
[2020-11-28 09:07] LABS: BASOPHILS % (AUTO) 0.1 % (0.0-2.0); HEMATOCRIT 25 % (39-51); HEMOGLOBIN 7.7 g/dL (13.5-17.5); LYMPHOCYTES # (AUTO) 0.8 /CMM (0.8-4.8); LYMPHOCYTES % (AUTO) 3.2 % (20.0-44.0); MEAN CORPUSCULAR HGB CONC 31 g/dl (31.0-36.0); MEAN CORPUSCULAR VOLUME 105 fL (80-96); MONOCYTES # (AUTO) 0.5 /CMM (0.1-1.30); MONOCYTES % (AUTO) 2.2 % (2.0-12.0); NEUTROPHILS # (AUTO) 23.3 /CMM (1.8-8.9); NEUTROPHILS % (AUTO) 94.5 % (43.0-81.0); PLATELET COUNT (AUTO) 258 /CMM (150-450); RED BLOOD CELL COUNT(AUTO) 2.34 MIL/uL (4.5-6.0); WHITE BLOOD COUNT (AUTO) 24.7 K/uL (4.3-11.0)
[2020-11-28 09:32] LABS: CALCIUM, SERUM 8.5 mg/dL (8.5-10.1); CREATININE 2.8 mg/dL (0.6-1.3); POTASSIUM 4.4 mmol/L (3.5-5.1)
--- NOTE | 2020-11-28 10:26 | NUR ---
RN NOTES HGB 7.7 HCT 25 HEPARIN 5000 UNITS WAS WITHHELD.
[2020-11-28] MEDS: NEPRO 1,000 ML BOTTLE GT PRN (13:15)
--- NOTE | 2020-11-28 19:30 | NUR ---
SPOOLER OPERATOR OPENING NOTE Patient awake in bed, A/O x1-2, [place] speaking and Tele monitor. Breathing even, clear, unlabored. Mechanical ventilation: shiley 8 FiO2 50% AC24 TV500 PEEP5, O2sat 100%. No acute distress or SOB noted. Skin is warm, pink, dry, appropriate for ethnicity. DTI noted on sacrum. Skin is dry and flaky. Patient is incontinent. IV site LFA 22g saline locked, patent and intact. No signs of redness or infiltration. HOB elevated. GTF feeding nepro 45 ml/hr, no residual. Patient tolerating well. Bed in low position, wheels locked, side rails up x2, call light within reach. continue to monitor.
--- NOTE | 2020-11-28 19:35 | NUR ---
TELE/RN CLOSING NOTES PATIENT IS ON BED. ALERT AND ORIENTED X3. PATIENT IN NO APPARENT RESPIRATORY DISTRESS NOTED. NO COMPLAINED OF PAIN AT THIS TIME. TELE MONITOR READING AFIB WITH BIGEMINY 85 BPM. PATIENT IS ON VENTILATOR DEPENDENT AT THE PRESCRIBED SETTINGS. IV ACCESS AT LEFT FOREARM #22G PATENT AND INTACT. GTUBE FEEDING AT PRESCRIBED RATE INFUSING WELL. SEEN AND EXAMINED BY MD WITH ORDERS MADE AND CARRIED OUT. ALL DUE MEDICATIONS WAS GIVEN. SAFETY PRECAUTIONS WAS IN PLACED. BED IN LOWEST POSITION AND LOCKED X2. CALL LIGHT WITHIN REACH. WILL ENDORSED TO FRESH WORK INSPECTOR FOR [facility].
--- NOTE | 2020-11-28 20:42 | NUR ---
RN NOTES HGB 7.7 HCT 25 HEPARIN 5000 UNITS WAS WITHHELD. CHARGE NURSE AWARE. CONTINUE TO MONITOR.
[2020-11-28] MEDS: TAMSULOSIN 0.4 MG CAP.SR.24H GT SCH (21:08)
[2020-11-29] VITALS (7 sets, daily range): BP systolic 128–150; BP diastolic 67–95
[2020-11-29] MEDS: METOPROLOL TARTRATE 25 MG TABLET GT SCH ×3 (05:00→17:03)
[2020-11-29] MEDS: BLOOD SUGAR DIAGNOSTIC 1 EACH STRIP IN SCH ×3 (05:01→17:03)
[2020-11-29] MEDS: INSULIN REGULAR, HUMAN 100 UNIT/ML 3 ML VIAL SQ PRN ×2 (05:03→12:59)
--- NOTE | 2020-11-29 05:52 | NUR ---
TELE/RN CLOSING NOTES PATIENT IS ON BED. ALERT AND ORIENTED X3. PATIENT IN NO APPARENT RESPIRATORY DISTRESS NOTED. NO COMPLAINED OF PAIN AT THIS TIME. TELE MONITOR READING AFIB CONTROLLED W/ 85. PATIENT IS ON VENTILATOR DEPENDENT AT THE PRESCRIBED SETTINGS. IV ACCESS AT LEFT FOREARM #22G PATENT AND INTACT. GTUBE FEEDING AT PRESCRIBED RATE INFUSING WELL. SAFETY PRECAUTIONS WAS IN PLACED. BED IN LOWEST POSITION AND LOCKED X2. CALL LIGHT WITHIN REACH. CONTINUE TO MONITOR.
[2020-11-29 07:08] LABS: BASOPHILS % (AUTO) 0.1 % (0.0-2.0); EOSINOPHILS % (AUTO) 0.3 % (0.0-6.0); HEMATOCRIT 25 % (39-51); HEMOGLOBIN 7.9 g/dL (13.5-17.5); LYMPHOCYTES # (AUTO) 1.2 /CMM (0.8-4.8); LYMPHOCYTES % (AUTO) 5.2 % (20.0-44.0); MEAN CORPUSCULAR HGB CONC 32 g/dl (31.0-36.0); MEAN CORPUSCULAR VOLUME 104 fL (80-96); MONOCYTES # (AUTO) 0.9 /CMM (0.1-1.30); MONOCYTES % (AUTO) 4.1 % (2.0-12.0); NEUTROPHILS # (AUTO) 20.5 /CMM (1.8-8.9); NEUTROPHILS % (AUTO) 90.3 % (43.0-81.0); PLATELET COUNT (AUTO) 251 /CMM (150-450); RED BLOOD CELL COUNT(AUTO) 2.41 MIL/uL (4.5-6.0); WHITE BLOOD COUNT (AUTO) 22.7 K/uL (4.3-11.0)
[2020-11-29 07:24] LABS: CALCIUM, SERUM 7.9 mg/dL (8.5-10.1); CREATININE 3.1 mg/dL (0.6-1.3); POTASSIUM 4.6 mmol/L (3.5-5.1)
--- NOTE | 2020-11-29 07:30 | NUR ---
RN Opening note Received patient in bed, AO x 1-2 able to responds all stimuli, Pt does no appears pain or distress. Skin is warm to touch keep clean/dry intact IV site, respiratory even and unlabored with ventilator O2sat 99%. Kept locked bed with elevated HOB for aspiration precaution and ensure airway and lowest bed foe safety. Call light within reach, will continue to monitor.
[2020-11-29] MEDS: IPRATROPIUM BROMIDE 14 GM INHALER (or 12.9 GM) IH SCH ×2 (08:00→14:48)
[2020-11-29 08:22] LABS: GENTAMICIN,RANDOM 2.2 ug/ml (4.0-8.0)
[2020-11-29] MEDS: HEPARIN SODIUM, PORCINE 5000 UNITS/1 ML VIAL SQ SCH (09:00)
[2020-11-29] MEDS: methylPREDNISolone SOD SUCC 40 MG/ML VIAL IV SCH (09:27)
[2020-11-29] MEDS: CHOLECALCIFEROL 1,000 UNIT TABLET (VIT D3) GT SCH (09:27)
[2020-11-29] MEDS: PANTOPRAZOLE 40 MG/PACK PACK GT SCH (09:27)
[2020-11-29] MEDS: VIT B CMPLX 3/FA/VIT C/BIOTIN 1 TAB TABLET GT SCH (09:27)
[2020-11-29] MEDS: ASPIRIN 81 MG TAB.CHEW GT SCH (09:27)
[2020-11-29] MEDS: PROSOURCE / PROSTAT (PYXIS) 30 ML UDC GT SCH ×2 (09:32→16:49)
[2020-11-29] MEDS: AMMONIUM LACTATE 227 GM BOTTLE TP SCH ×2 (09:33→16:50)
[2020-11-29] MEDS: DAKINS QUARTER STRENGTH (0.125%) 480 ML BOTTLE TOP SCH (09:33)
[2020-11-29] MEDS: CLOTRIMAZOLE 1% 15 GM TUBE TP SCH ×2 (09:34→16:50)
[2020-11-29] MEDS: NEPRO 1,000 ML BOTTLE GT PRN (12:53)
--- NOTE | 2020-11-29 17:03 | NUR ---
Pt is oh HD, will hold bp med.
--- NOTE | 2020-11-29 18:17 | NUR ---
Spoke with [facility]/Jose RN said "Covid result need fax over to [facility] to see result fist unless we don't accept to get report and pt transfer." Patient Started HD and unable to take wand picture on sacral due to difficult to positioning.
--- NOTE | 2020-11-29 18:44 | NUR ---
Patient discharge to [facility], given report Randi CATES.
--- NOTE | 2020-11-29 18:50 | NUR ---
RN closing Patient in bed just finished HD and 400ML out put, does no appears pain or discomfort. Skin is warm to touch keep clean/dry. Respiratory even and unlabored with ventilator O2sat 100%. Patient discharge and ambulance will be here at 9pm. Kept elevated HOB for ensure air way and aspiration precaution and lowest bed for safety. Call light within reach, will endorse hourly shift manager.
--- NOTE | 2020-11-29 20:40 | NUR ---
TELERN AWAKE, VENT DEPENDENT SEEN BY RT/ NO CHANGE ON VENT SETTINGS. GT FEEDING RESUMED. NO RESIDUALS. PATIENT FOR DISCHARGE TONIGHT TO ALL [facility]INTS. AWAITING.
[2020-11-29] MEDS: TAMSULOSIN 0.4 MG CAP.SR.24H GT SCH (21:55)
[2020-11-30 00:46] VITALS: BP 173/94
--- NOTE | 2020-11-30 01:32 | NUR ---
TELERN TO ALL [facility] VIA AMBULANCE WITH RT. NO PERSONAL BELONGINGS. PATIENT STABLE.
== END 2020-11-30 01:23 | DRG 720 ==
LOC: ER 11:37 → TRANSITION 17:07 → TELE 11-23 15:20
PROVIDERS: ADMIT Nurse Practitioner Acute Care; ATTEND Nurse Practitioner Acute Care
PROC: 5A1955Z Respiratory Ventilation, Greater than 96 Consecutive Hours (ICD-10-PCS; principal; 2020-11-22)
PROC: 5A1D70Z Performance of Urinary Filtration, Intermittent, Less than 6 Hours Per Day (ICD-10-PCS; 2020-11-23)
DX: A41.9 Sepsis, unspecified organism (principal); E43 Unspecified severe protein-calorie malnutrition; G92 Toxic encephalopathy; I13.2 Hypertensive heart and chronic kidney disease with heart failure and with stage 5 chronic kidney disease, or end stage renal disease; J69.0 Pneumonitis due to inhalation of food and vomit; J96.21 Acute and chronic respiratory failure with hypoxia; J96.22 Acute and chronic respiratory failure with hypercapnia; B35.1 Tinea unguium; D53.9 Nutritional anemia, unspecified; E78.5 Hyperlipidemia, unspecified; D68.69 Other thrombophilia; F41.9 Anxiety disorder, unspecified; R53.2 Functional quadriplegia; N18.6 End stage renal disease; Z99.2 Dependence on renal dialysis; K21.9 Gastro-esophageal reflux disease without esophagitis; E88.09 Other disorders of plasma-protein metabolism, not elsewhere classified; M62.50 Muscle wasting and atrophy, not elsewhere classified, unspecified site; Z68.32 Body mass index [BMI] 32.0-32.9, adult; I50.30 Unspecified diastolic (congestive) heart failure; I48.20 Chronic atrial fibrillation, unspecified; K74.60 Unspecified cirrhosis of liver; N40.0 Benign prostatic hyperplasia without lower urinary tract symptoms; R13.10 Dysphagia, unspecified; Z20.828 Contact with and (suspected) exposure to other viral communicable diseases; Z74.01 Bed confinement status; Z93.1 Gastrostomy status; Z99.11 Dependence on respirator [ventilator] status; Z79.82 Long term (current) use of aspirin; L97.529 Non-pressure chronic ulcer of other part of left foot with unspecified severity; L97.519 Non-pressure chronic ulcer of other part of right foot with unspecified severity; Z93.0 Tracheostomy status
CPT/HCPCS: 31720; 36415; 36600; 71045-TC; 80048-TC; 80061-TC; 80076-TC; 80170-TC; 80202-TC; 82962-TC; 83540-TC; 83605-TC; 83735-TC; 83880; 84100-TC; 84484-TC; 85025-TC; 87040-TC; 87081-TC; 90935-TC; 93970-TC; 94003-TC; 94640; 94760-TC; 94762-TC; 94799-TC; G0378; J1160; J1580; J1644; J1815; J2185; J2405; J2543; J2920; J2930; J3370; J7030; J7040; J7060; U0003